=== PATIENT | female | born 1950 | race Caucasian/White ===

== ENCOUNTER → 2016-10-07 | Outpatient (CLI) | payer MEDICARE, OTHER ==
--- NOTE | ~2016-10-07 | MY11 ---
[facility] A Service of [facility] RADIOLOGY TEXT RESULTS PATIENT: MISSY REVELES LOCATION: [facility] : 52 UNIT #: [id number] AGE: [address]: Quirino Rincon MD SEX: F ORDER DR: [id number] [facility] [address] [facility] [address] [id number] O MR#: [id number] Acc #: [id number] NAME: MISSY REVELES : 1950 SEX: F STUDY DATE/TIME: 10/07/2016 12:31 UNIT: [facility] ROOM: STUDY DESCRIPTION: MY Mammogram Screening [place] Attending Physician: Quirino Rincon M.D. Referring Physician: Quirino Rincon M.D. Ordering Physician: Quirino Rincon M.D. Primary Care Physician: Quirino Rincon M.D. MEDICAL IMAGING REPORT This report is preliminary unless electronic signature is present EXAM Digital screening mammogram 10/07/2016 HISTORY 66-year-old woman positive family history, mother age 80. Annual screening. COMPARISON Mammograms date to 06/09/2005 with most recent 10/03/2015. FINDINGS Digital imaging of each breast was completed utilizing screening protocol. Review includes FDA-approved CAD device. Breast parenchyma is moderately dense with residual fibroglandular opacities bilaterally. There is no dominant mass. There are no interval occurring microcalcifications and no suspicious architectural deformity. IMPRESSION Negative mammogram. Annual screening recommended. Patients over the age of 40 are entered into a reminder system with target due date for the next mammogram. A result letter will also be sent to the patient. BIRADS: 1, negative. Dictated by... Magdy Medrano M.D. THIS IS AN ELECTRONICALLY VERIFIED REPORT Magdy Medrano M.D. at 10/07/2016 3:57 PM JBB/rnr [facility] A Service of [facility] RADIOLOGY TEXT RESULTS PATIENT: MISSY REVELES LOCATION: [facility] #: [id number] : 52 UNIT #: [id number] AGE: [address]: Quirino Rincon MD SEX: F ORDER DR: TD: 10/07/2016 14:07 JOB #: [id number] MEDICAL IMAGING REPORT Page 1 of 1 COPY
--- NOTE | ~2016-10-07 | BD1 ---
[facility] A Service of [facility] RADIOLOGY TEXT RESULTS PATIENT: MISSY REVELES LOCATION: [facility] : 52 UNIT #: [id number] AGE: [address]: Quirino Rincon MD SEX: F ORDER DR: [id number] [facility] [address] [place], [place] [address] [id number] O MR#: [id number] Acc #: [id number] NAME: MISSY REVELES : 1950 SEX: F STUDY DATE/TIME: 10/07/2016 12:54 UNIT: [facility] ROOM: STUDY DESCRIPTION: BD Dexa Bone Dens 1+ Site Attending Physician: Quirino Rincon M.D. Referring Physician: Quirino Rincon M.D. Ordering Physician: Quirino Rincon M.D. Primary Care Physician: Quirino Rincon M.D. MEDICAL IMAGING REPORT This report is preliminary unless electronic signature is present EXAM DXA scan. HISTORY Postmenopausal screening for osteoporosis. FINDINGS Bone density is assessed utilizing Hologic bone densitometer. Total bone density within the lumbar spine was calculated at 0.658 g/cm2 with a T-score of -3.5. Bone density within the left femoral neck was calculated at 0.436 g/cm2 with a T-score -3.7. IMPRESSION Total bone density in the lumbar spine and proximal left femur is greater than 2.5 standard deviations below the mean and meets the World Health Organization classification for osteoporosis. Dictated by... Jean Carlos Mandel M.D. THIS IS AN ELECTRONICALLY VERIFIED REPORT Jean Carlos Mandel M.D. at 10/09/2016 10:35 PM En[place] TD: 10/07/2016 15:31 JOB #: [id number] MEDICAL IMAGING REPORT Page 1 of 1 COPY
== END | disposition home or self-care (01) ==
LOC: CWCC 11:30
DX: Z13.820 Encounter for screening for osteoporosis (principal); Z12.31 Encounter for screening mammogram for malignant neoplasm of breast; Z80.3 Family history of malignant neoplasm of breast; M81.0 Age-related osteoporosis without current pathological fracture
CPT/HCPCS: 77080; G0202